=== PATIENT | male | born 1940 | race Caucasian/White ===

== ENCOUNTER → 2021-06-06 | Outpatient (CLI) | payer MEDICARE, OTHER ==
[~2021-06-06] MED LIST: AMIODARONE HCL200 MG PO; ASPIRIN CHEWABL81 MG PO; CELEBREX 200MG200 MG PO; CLOPIDOGREL75 MG PO; COZAAR 25MG TAB25 MG PO; CRESTOR10 MG PO; DECADRON6 MG PO; DICLOFONO2.5 GM TP; ELIQUIS 2.5 MG2.5 MG PO; GLUCOPHAGE500 MG PO; NITROSTAT0.4 MG SL; PROSCAR 5 MG TAB5 MG PO; PROTONIX40 MG PO; SINGULAIR10 MG PO; ZOCOR 40 MG TAB40 MG PO
== END ==
LOC: SLEEP 11:06
DX: G47.33 Obstructive sleep apnea (adult) (pediatric) (principal)
CPT/HCPCS: 95810

== ENCOUNTER 2021-07-20 20:12 | Inpatient (IN) | payer MEDICARE, OTHER ==
[~2021-07-20] VITALS: Ht 180.3 cm; Wt 90.7 kg
[~2021-07-20 20:12] MED LIST changes: -CRESTOR10 MG PO; -DECADRON6 MG PO
[2021-07-20 20:54] LABS: HEMOGLOBIN 12.8 gm/dl (14.0-17.5); RED BLOOD COUNT 4.05 M/UL (4.20-5.50); WHITE BLOOD COUNT 8.4 K/UL (4.5-11.0)
[2021-07-20 21:16] LABS: BUN/CREATININE RATIO 23 (0-10)
[2021-07-21] MEDS ORDERED: CRESTOR10 MG PO (03:37)
[2021-07-21 05:36] LABS: HEMOGLOBIN 11.8 gm/dl (14.0-17.5); RED BLOOD COUNT 3.89 M/UL (4.20-5.50)
[2021-07-21 05:40] LABS: WHITE BLOOD COUNT 11.2 K/UL (4.5-11.0)
[2021-07-21 06:02] LABS: BUN/CREATININE RATIO 21 (0-10)
[2021-07-22 00:32] LABS: ENTEROCOCCUS Not Detected (Negative); KPC-CARBAPENEM-RESISTANCE GENE Not Detected (Negative); vanA/B (VANCOMYCIN RESIST GENE Not Detected (Negative)
[2021-07-22 00:33] LABS: ACINETOBACTER BAUMANNII Not Detected (Negative); CANDIDA ALBICANS Not Detected (Negative); CANDIDA KRUSEI Not Detected (Negative); CANDIDA TROPICALIS Not Detected (Negative); ESCHERICHIA COLI Not Detected (Negative); HAEMOPHILUS INFLUENZAE Not Detected (Negative); KLEBSIELLA OXYTOCA Not Detected (Negative); KLEBSIELLA PNEUMONIAE Not Detected (Negative); PROTEUS Not Detected (Negative); PSEUDOMONAS AERUGINOSA Not Detected (Negative); SERRATIA MARCESANS Not Detected (Negative); STAPHYLOCOCCUS AUREUS Not Detected (Negative); STREP AGALACTIAE (GROUP B) Not Detected (Negative); STREP PYOGENES (GROUP A) Not Detected (Negative); STREPTOCOCCUS Not Detected (Negative)
[2021-07-22 01:44] LABS: STAPHYLOCOCCUS DETECTED (Negative); mecA (METHICILLIN RESIST GENE DETECTED (Negative)
[2021-07-22] MEDS ORDERED: DECADRON6 MG PO (09:56)
--- NOTE | 2021-07-23 14:15 | NUR ---
PT 02 STAT 85% ON ROOM AIR.
[2021-07-24 04:41] LABS: BUN/CREATININE RATIO 24 (0-10)
[2021-07-25 04:55] LABS: BUN/CREATININE RATIO 27 (0-10)
== END 2021-07-25 16:51 | disposition home health service (06) | DRG 177 ==
LOC: ER1 20:12 → PROG CARE 23:03 → CDU 23:03 → PROG CARE 07-21 04:50
PROVIDERS: Emergency Medicine; Internal Medicine; ADMIT Internal Medicine
PROC: XW033E5 Introduction of Remdesivir Anti-infective into Peripheral Vein, Percutaneous Approach, New Technology Group 5 (ICD-10-PCS; principal; 2021-07-20)
PROC: 3E0333Z Introduction of Anti-inflammatory into Peripheral Vein, Percutaneous Approach (ICD-10-PCS; 2021-07-20)
DX: U07.1 COVID-19 (principal); J12.82 Pneumonia due to coronavirus disease 2019; J96.01 Acute respiratory failure with hypoxia; E87.1 Hypo-osmolality and hyponatremia; J44.0 Chronic obstructive pulmonary disease with (acute) lower respiratory infection; R78.81 Bacteremia; I25.10 Atherosclerotic heart disease of native coronary artery without angina pectoris; R00.1 Bradycardia, unspecified; E11.9 Type 2 diabetes mellitus without complications; G47.33 Obstructive sleep apnea (adult) (pediatric); I71.4 Abdominal aortic aneurysm, without rupture; I10 Essential (primary) hypertension; Z88.1 Allergy status to other antibiotic agents; Z88.0 Allergy status to penicillin; I25.2 Old myocardial infarction; Z79.4 Long term (current) use of insulin; Z95.5 Presence of coronary angioplasty implant and graft; Z90.49 Acquired absence of other specified parts of digestive tract; Z98.42 Cataract extraction status, left eye; Z98.41 Cataract extraction status, right eye; Z82.49 Family history of ischemic heart disease and other diseases of the circulatory system
CPT/HCPCS: 0240U; 36415; 36600; 51702; 71045; 80048; 80053; 80202; 82550; 82553; 82803; 82962; 83605; 83874; 84484; 85025; 87040; 87077; 87150; 87186; 93005; 94640; 94664; 94760; 96374; 97161; 99285; J0696; J1100; J1650; J1956; J2405; J3370; J7030; J7070

== ENCOUNTER 2022-03-28 17:12 | Emergency (ER) | payer MEDICARE, OTHER ==
[~2022-03-28 17:12] MED LIST changes: +CRESTOR10 MG PO; +DECADRON6 MG PO
[2022-03-28 18:40] LABS: HEMOGLOBIN 13.6 gm/dl (14.0-17.5); RED BLOOD COUNT 4.39 M/UL (4.20-5.50); WHITE BLOOD COUNT 9.5 K/UL (4.5-11.0)
[2022-03-28 19:01] LABS: BUN/CREATININE RATIO 34 (0-10)
[2022-03-28] MEDS ORDERED: ONDANSETRON ODT4 MG PO (21:17)
== END 2022-03-28 21:55 | disposition home or self-care (01) ==
LOC: ER1 17:12
PROVIDERS: Nurse Practitioner
DX: R10.84 Generalized abdominal pain (principal); R11.2 Nausea with vomiting, unspecified; R10.817 Generalized abdominal tenderness; I51.9 Heart disease, unspecified; I25.2 Old myocardial infarction; E10.9 Type 1 diabetes mellitus without complications; Z20.822 Contact with and (suspected) exposure to COVID-19; Z88.0 Allergy status to penicillin
CPT/HCPCS: 0240U; 71045; 80053; 80076; 82150; 82272; 82550; 82553; 83605; 83690; 84484; 85025; 85610; 85730; 87040; 96374; 96375; 99284; J2270; J2405; Q9967